=== PATIENT | male | born 1995 | race Caucasian/White ===

== ENCOUNTER 2017-04-26 16:39 | Emergency (ER) | payer OTHER ==
[~2017-04-26] VITALS: Ht 177.8 cm; Wt 80.0 kg
[2017-04-26 16:40] VITALS: TEMP 36.4; Ht 177.8 cm; Wt 80.0 kg
[2017-04-26] MEDS ORDERED: RTL20 PO (16:49)
[2017-04-26] MEDS ORDERED: LIDOCAINE/EPINEPHRINE 1% 20 ML VIAL INFIL ONE (17:00)
[2017-04-26] MEDS ORDERED: NEOMYCIN/POLYMYX/BACITR OINT 15 GM TUBE EXT STA (17:23)
[2017-04-26] MEDS ORDERED: ACETAMINOPHEN 500 MG TAB PO STA (17:23)
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
[2017-04-26 18:08] LABS: BASO % 0.1 %; BASO ABS # 0.01 K/uL (0-0.2); COMPLETE YES; EOS % 0.2 %; HEMATOCRIT 46.8 % (42-52); IG% 0.2 %; LYMPH % 14.6 %; LYMPH ABS # 1.23 K/uL (1.2-3.4); MEAN CELL VOLUME 90.2 fL (80-100); MEAN CORPUSCULAR HEMOGLOBIN 32.2 pg (25-34); MEAN CORPUSCULAR HGB CONC 35.7 g/dl (32-36); MEAN PLATELET VOLUME 10.1 fL (7.4-10.4); NEUT % 81.9 %; PLATELET COUNT 209 K/uL (130-400); RED BLOOD COUNT 5.19 M/uL (4.7-6.1); WHITE BLOOD COUNT 8.43 K/uL (4.8-10.8)
[2017-04-26 18:17] LABS: PROTHROMBIN TIME (PATIENT) 10.6 SECONDS (9.0-12.0)
[2017-04-26] MEDS ORDERED: LEVETIRACETAM IV 2,000 MG in DEXTROSE 5% 250ML 250 ML IV ONE (18:30)
[2017-04-26 18:40] LABS: ALKALINE PHOSPHATASE 71 U/L (45-117); ALT/SGPT 39 U/L (12-78); BLOOD UREA NITROGEN 10 mg/dl (7-18); BUN/CREATININE RATIO 10.4 (10-20); CALCIUM 8.7 mg/dl (8.5-10.1); CARBON DIOXIDE 25 mmol/L (21-32); CHLORIDE 109 mmol/L (98-107); CREATININE 0.96 mg/dl (0.60-1.40); GLUCOSE 94 mg/dl (70-99); SODIUM 144 mmol/L (136-145)
[2017-04-26 18:44] LABS: POTASSIUM 3.8 mmol/L (3.5-5.1)
[2017-04-26 18:49] LABS: AST/SGOT 30 U/L (15-37)
[2017-04-26 19:16] VITALS: BP 136/77; PULSE 89; O2SAT 100
== END 2017-04-26 19:18 | disposition short-term general hospital (02) ==
LOC: EDBD 16:39 → C.EDB 16:41
DX: S06.6X1A Traumatic subarachnoid hemorrhage with loss of consciousness of 30 minutes or less, initial encounter (principal); S06.5X1A Traumatic subdural hemorrhage with loss of consciousness of 30 minutes or less, initial encounter; S00.83XA Contusion of other part of head, initial encounter; S01.111A Laceration without foreign body of right eyelid and periocular area, initial encounter; Z91.128 Patient's intentional underdosing of medication regimen for other reason; Y04.0XXA Assault by unarmed brawl or fight, initial encounter